=== PATIENT | female | born 1995 | race African-American/Black ===

== ENCOUNTER 2022-02-07 11:44 | Emergency (ER) | payer OTHER ==
[2022-02-07 12:08] VITALS: BP 112/66; PULSE 69; TEMP 98.6; BMI 25.8
== END 2022-02-07 13:10 | disposition home or self-care (01) ==
LOC: JERFT 11:44 → JER 11:44 → JERFT 13:10
PROC: 0HQFXZZ Repair Right Hand Skin, External Approach (ICD-10-PCS; principal; 2022-02-07)
DX: S61.210A Laceration without foreign body of right index finger without damage to nail, initial encounter (principal); W26.8XXA Contact with other sharp object(s), not elsewhere classified, initial encounter
CPT/HCPCS: 99282-25